=== PATIENT | male | born 1990 | race African-American/Black ===

== ENCOUNTER 2017-08-18 00:04 | Emergency (ER) | payer MEDICAID ==
[~2017-08-18] VITALS: Ht 195.6 cm; Wt 73.0 kg
[2017-08-18] MEDS ORDERED: FLUORESCEIN SODIUM 1MG/STRIP OP ONE (02:15)
[2017-08-18] MEDS ORDERED: TETRACAINE 0.5% OPHTH DROPS 4ML OP ONE (02:15)
[2017-08-18 03:05] LABS: CLARITY URINE CLEAR (CLEAR); COLOR URINE YELLOW (YELLOW); KETONES URINE NEGATIVE (NEGATIVE); LEUKOCYTE ESTERASE URINE NEGATIVE (NEGATIVE); NITRITE URINE NEGATIVE (NEGATIVE); OCCULT BLOOD URINE NEGATIVE (NEGATIVE); PROTEIN URINE TRACE (NEGATIVE); SPECIFIC GRAVITY URINE 1.029 (1.005-1.030)
[2017-08-18] MEDS ORDERED: LIDOCAINE HCL 1% 20ML VIAL (Pyxis) INJ MC ONE (03:45)
[2017-08-18] MEDS ORDERED: CEFTRIAXONE SODIUM 250 MG/VIAL IM ONE (03:45)
[2017-08-18] MEDS ORDERED: AZITHROMYCIN 500 MG TABLET PO ONE (03:45)
[2017-08-18 03:50] VITALS: BP 119/69
[2017-08-21 04:17] LABS: CHLAMYDIA TRACHOMATIS NAA Negative (Negative); NEISSERIA GONORRHOEAE NAA Negative (Negative)
== END 2017-08-18 04:37 | disposition home or self-care (01) ==
LOC: ER 00:04
DX: H10.89 Other conjunctivitis (principal); R30.0 Dysuria; R36.9 Urethral discharge, unspecified; N48.89 Other specified disorders of penis
CPT/HCPCS: 81003; 87491; 87591; 96372; 99284; J0696; J3490; Z7610

== ENCOUNTER 2017-09-27 01:32 | Emergency (ER) | payer SELFPAY ==
[~2017-09-27] VITALS: Ht 195.6 cm; Wt 76.0 kg
[2017-09-27 03:16] LABS: CLARITY URINE CLEAR (CLEAR); COLOR URINE YELLOW (YELLOW); KETONES URINE NEGATIVE (NEGATIVE); LEUKOCYTE ESTERASE URINE NEGATIVE (NEGATIVE); NITRITE URINE NEGATIVE (NEGATIVE); OCCULT BLOOD URINE NEGATIVE (NEGATIVE); PROTEIN URINE NEGATIVE (NEGATIVE); SPECIFIC GRAVITY URINE 1.035 (1.005-1.030)
[2017-09-27 03:23] LABS: BASOPHILS % 0.5 % (0.0-2.0); EOSINOPHILS % 0.8 % (0.0-5.0); HEMATOCRIT. 39.6 % (42.0-52.0); HEMOGLOBIN. 13.8 g/dL (14.0-18.0); MEAN CORPUSCULAR HEMOGLOBIN 29.9 pg (28.0-32.0); MEAN CORPUSCULAR VOLUME 85.6 fL (80.0-94.0); MONOCYTES % 6.5 % (2.0-8.0); NEUTROPHILS % 68.2 % (40.0-76.0); PLATELET 370 x1000/uL (130-400); RED BLOOD CELL COUNT 4.62 mill/uL (4.7-6.1); RED CELL DISTRIBUTION WIDTH 13.8 % (11.6-14.6)
[2017-09-27 03:25] LABS: CHLORIDE 109 mEq/L (98-107)
[2017-09-27 03:26] LABS: INR 1.2; PROTHROMBIN TIME 12.3 sec (9.4-11.6)
[2017-09-27 03:27] LABS: *AMPHETAMINES SCREEN URINE NEGATIVE (NEGATIVE); *BARBITURATES SCREEN URINE NEGATIVE (NEGATIVE); *BENZODIAZEPINES SCREEN URINE NEGATIVE (NEGATIVE); *COCAINE SCREEN URINE NEGATIVE (NEGATIVE)
[2017-09-27 03:28] LABS: CANNABINOID URINE SCREEN NEGATIVE (NEGATIVE); METHADONE URINE SCREEN NEGATIVE (NEGATIVE); OPIATES URINE SCREEN NEGATIVE (NEGATIVE); PHENCYCLIDINE URINE SCREEN NEGATIVE (NEGATIVE)
[2017-09-27 05:39] VITALS: BP 108/53
== END 2017-09-27 06:56 | disposition home or self-care (01) ==
LOC: ER 02:16
DX: H61.21 Impacted cerumen, right ear (principal); R42 Dizziness and giddiness; I10 Essential (primary) hypertension
CPT/HCPCS: 36415; 69209; 80053; 80305; 81003; 85025; 85610; 93005; 99285; X7700; Z7610

== ENCOUNTER 2017-10-30 12:09 | Emergency (ER) | payer OTHER ==
[~2017-10-30] VITALS: Ht 193 cm; Wt 69.0 kg
[2017-10-30 14:21] VITALS: BP 114/72
== END 2017-10-30 14:41 | disposition home or self-care (01) ==
LOC: ER 12:47
DX: R51 Headache (principal); H52.7 Unspecified disorder of refraction; F32.9 Major depressive disorder, single episode, unspecified; I10 Essential (primary) hypertension; F31.9 Bipolar disorder, unspecified
CPT/HCPCS: 99283; Z7610

== ENCOUNTER 2020-08-06 22:51 | Emergency (ER) | payer OTHER ==
[~2020-08-06] VITALS: Ht 193 cm; Wt 73.0 kg
[2020-08-06 23:09] VITALS: BP 108/68
== END 2020-08-07 01:10 | disposition left against medical advice (07) ==
LOC: ER 22:51
DX: R10.30 Lower abdominal pain, unspecified (principal); Z53.21 Procedure and treatment not carried out due to patient leaving prior to being seen by health care provider